=== PATIENT | female | born 2000 | race Two or more races ===

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

== ENCOUNTER 2023-03-20 21:15 | Emergency (ER) | payer MEDICAID ==
[~2023-03-20] VITALS: Ht 160 cm; Wt 50.6 kg
[2023-03-20 22:28] LABS: Basophils # (auto) 0 10 ^3/uL (0-0.2); Basophils % (auto) 0.3 % (0.0-2.0); Eosinophils # (auto) 0.1 10 ^3/uL (0-0.8); Eosinophils % (auto) 0.8 % (0.0-7.0); Hematocrit 40.3 % (36.0-46.0); Hemoglobin 13.6 g/dL (12.2-16.2); Lymphocytes # (auto) 2.5 10 ^3/uL (0.4-5.4); Lymphocytes % (auto) 15.5 % (10.0-50.0); Mean Corpuscular Hemoglobin 30.9 pg (28.0-32.0); Mean Corpuscular Hgb Conc. 33.8 g/dL (32.0-36.0); Mean Corpuscular Volume 91.4 fL (80.0-100.0); Monocytes # (auto) 0.9 10 ^3/uL (0-1.3); Monocytes % (auto) 5.2 % (0.0-12.0); Neutrophils # (auto) 12.8 10 ^3/uL (1.6-8.6); Neutrophils % (auto) 78.2 % (37.0-80.0); Red Blood Cells 4.41 10^6/uL (4.0-5.20); Red Cell Distribution Width 12.9 % (11.8-14.3); White Blood Cell 16.4 10^3/uL (4.4-10.8)
[2023-03-20 22:28] LABS: Urine Bacteria NONE SEEN /hpf (None Seen); Urine Blood Negative /uL (Negative); Urine Clarity Clear (Clear); Urine Color Colorless (Yellow); Urine Mucus FEW (None Seen); Urine Protein, UAD Negative (Negative); Urine Specific Gravity 1.011 (1.001-1.035); Urine Urobilinogen Normal (Negative); Urine WBC <1 /hpf (0 - 5); Urine pH 6.5 (5.0-8.0)
[2023-03-20 22:50] LABS: Alanine Aminotransferase 16 U/L (7-40); Albumin 4.4 g/dL (3.2-4.8); Alkaline Phosphatase 42 U/L (46-116); Anion Gap 8 (5-15); Aspartate Aminotransferase 13 U/L (13-40); Bilirubin, Total 0.4 mg/dL (0.2-1.0); Calcium 9.5 mg/dL (8.5-10.1); Carbon Dioxide 26 mmol/L (20-30); Chloride 103 mmol/L (98-107); Glucose 103 mg/dL (74-106); Potassium 3.7 mmol/L (3.5-5.1); Sodium 137 mmol/L (136-145); Total Protein 7.4 g/dL (5.7-8.2)
[2023-03-20 22:58] LABS: BUN/Creatinine Ratio 11.1 (10.0-20.0); Blood Urea Nitrogen < 5 mg/dL (9-23)
[2023-03-21 03:00] VITALS: BP 127/76; PULSE 85; RESP 14; TEMP 98.6; O2SAT 98
== END 2023-03-21 04:23 | disposition left against medical advice (07) ==
LOC: ER 21:15
DX: O26.891 Other specified pregnancy related conditions, first trimester (principal); R10.2 Pelvic and perineal pain; Z3A.13 13 weeks gestation of pregnancy
CPT/HCPCS: 36415; 76801; 80053; 81001; 81025; 84702; 85025

== ENCOUNTER 2024-05-29 21:47 | Emergency (ER) | payer MEDICAID ==
[~2024-05-29] VITALS: Ht 160 cm; Wt 58.1 kg
[2024-05-29 21:54] VITALS: BP 123/74; RESP 18
[2024-05-29] MEDS ORDERED: ALBUAER3 IN (23:04)
--- NOTE | 2024-05-29 23:04 | ED.PDOC ---
SOB-HPI HPI Comments 24-YEAR-OLD FEMALE PRESENTS TO ER WITH COMPLAINTS OF SHORTNESS OF BREATH X3 DAYS. PATIENT PAST MEDICAL HISTORY SIGNIFICANT FOR ASTHMA REPORTS THAT SHE HAS BEEN EXPERIENCING INTERMITTENT EPISODES OF SHORTNESS OF BREATH X3 DAYS. DENIES ANY PAIN AND NOTES SHE CURRENTLY IS NOT EXPERIENCING ANY SHORTNESS OF BREATH. PATIENT PRESENTS TO ER AMBULATORY ON ARRIVAL, WITH STEADY GAIT, IN NO DISTRESS, WITH VITALS STABLE. DENIES FEVER, BODY ACHES, CHILLS, CHEST PAIN, PALPITATIONS, SORE THROAT, NAUSEA/VOMITING, NUMBNESS/TINGLING OR ANY FURTHER SYMPTOMS/COMPLAINTS Chief Complaint: Shortness of Breath Time Seen by MD: 21:52 Primary Care Provider: UNKNOWN Reviewed notes: Nurses Notes, Medications, Allergies Information Source: Patient Mode of Arrival: Ambulatory Past Medical History PAST MEDICAL HISTORY: Asthma Surgical History: Denies all surgeries Family History Family History: Unknown Social History Smoker: Non-Smoker Alcohol: Denies ETOH Use Drugs: Denies Drug Use Lives In: Home Constitutional: denies: chills, diaphoresis, fatigue, fever, malaise, sweats, weakness, others EENTM: denies: blurred vision, double vision, ear bleeding, ear discharge, ear drainage, ear pain, ear ringing, eye pain, eye redness, hearing loss, mouth pain, mouth swelling, nasal discharge, nose bleeding, nose congestion, nose pain, photophobia, tearing, throat pain, throat swelling, voice changes, others Respiratory: reports: others ( STATED IN HPI) Cardiovascular: denies: chest pain, dizzy spells, diaphoresis, Dyspnea on exertion, edema, irregular heart beat, left arm pain, lightheadedness, palpitations, PND, syncope, others Gastrointestinal: denies: abdomen distended, abdominal pain, blood streaked bowels, constipated, diarrhea, dysphagia, difficulty swallowing, hematemesis, melena, nausea, poor appetite, poor fluid intake, rectal bleeding, rectal pain, vomiting, others Genitourinary: denies: abnormal vagina bleeding, burning, dyspareunia, dysuria, flank pain, frequency, hematuria, incontinence, pain, , vagina discharge, urgency, others Neurological: denies: dizziness, fainting, headache, left sided numbness, left sided weakness, numbness, paresthesia, pre-existing deficit, right sided numbness, right sided weakness, seizure, speech problems, tingling, tremors, weakness, others Musculoskeletal: denies: back pain, gout, joint pain, joint swelling, muscle pain, muscle stiffness, neck pain, others Integumetry: denies: bruises, change in color, change in hair/nails, dryness, laceration, lesions, lumps, rash, wounds, others Allergic/Immunocompromised: denies: Difficulty Healing, Frequent Infections, Hives, Itching, others Hematologic/Lymphatic: denies: anemia, blood clots, easy bleeding, easy bruising, swollen glands, others Endocrine: denies: excessive hunger, excessive sweating, excessive thirst, excessive urination, flushing, intolerance to cold, intolerance to heat, unexplained weight gain, unexplained weight loss, others Psychiatric: denies: anxiety, bipolar disorder, depression, hopeless, panic dis order, schizophrenia, sleepless, suicidal, others Physical Exam General Appearance: No Apparent Distress HEENT: Normal ENT Inspection, PERRL/EOMI, Pharynx Normal, TMs Normal Neck: Full Range of Motion, Non-Tender, Normal Respiratory: Chest Non-Tender, Lungs Clear, No Accessory Muscle Use, No Respiratory Distress, Normal Breath Sounds Cardiovascular: No Murmur, No Gallop, Regular Rate/Rhythm Breast Exam: Deferred Gastrointestinal: NOT DONE Genitalia: Deferred Pelvic: Deferred Rectal: Deferred Extremities: Normal capillary refill, Normal range of motion Neurologic: Alert, bark peeler II-XII nml as Tested, No Motor Deficits, Normal Affect, Normal Mood, No Sensory Deficits Cerebellar Function: Normal Reflexes: Normal Skin: Dry, Normal Color, Warm Peripheral Pulses: 2+ Radial (R), 2+ Radial (L), 2+ Brachial (R), 2+ Brachial (L) Lymphatic: No Adenopathy EKG EKG : Pulse Rate (adult): 96 Cardiac Rhythm: NSR (SR) Block: None Hypertrophy: None ST: Normal Was a procedure done? Was a procedure done?: No Sedation Sedation?: No Differential Dx Differential Diagnosis: Pneumonia, Pulmonary Embolism, Respiratory Distress, Other (COVID-19, INFLUENZA) X-Ray, Labs, Meds, VS Vital Signs Date Time Temp Pulse Resp B/P (MAP) Pulse Ox O2 Delivery O2 Flow Rate FiO2 05/29/24 23:06 97 Room Air* 0 21 05/29/24 21:56 96 05/29/24 21:54 98.0 93 18 123/74 (90) 97 Lab Test 05/29/24 22:56 Range/Units Influenza Type A Antigen Negative Negative Influenza Type B Antigen Negative Negative SARS-CoV-2 Antigen (Rapid) Negative NEGATIVE SWAB RESULTS REVIEWED-NEGATIVE EKG REVIEWED PATIENT ASYMPTOMATIC PRIOR TO DISCHARGE ADVISED TO DRINK PLENTY OF FLUIDS ADVISED TO FOLLOW UP WITH PCP IN 1-2 DAYS PATIENT VERBALIZED UNDERSTANDING AND AGREEABLE WITH CURRENT PLAN OF CARE ADVISED TO RETURN TO ER IMMEDIATELY IF SYMPTOMS WORSEN Time of 1ST Reevaluation: 22:40 Reevaluation 1ST: N/A Patient Education/Counseling: Diagnosis, Treatment, Prognosis, Need For Follow Up Family Education/Counseling: No Family Present Departure 1 Departure Time of Disposition: 23:02 Impression: Primary Impression: Bronchospasm Disposition: 01 HOME / SELF CARE / HOMELESS Condition: Stable e-Prescriptions Albuterol Sulfate (VENTOLIN MDI) 90 Mcg Ih 2 PUFF IN Q4HPRN, #1 INH 0 Refills Prov: DEYSI ELLER 05/29/24 Discharged With: Self Critical Care Note Critical Care Time?: No Stability Stability form required: No Heart Score Heart Score: Heart Score Response (Comments) Value History N/A 0 EKG N/A 0 Age N/A 0 Risk Factors N/A 0 Troponin N/A 0 Total 0 DEYSI ELLER May 29, 2024 23:04
[2024-05-29 23:06] VITALS: O2SAT 97
[2024-05-29 23:24] LABS: Rapid Influenza A Negative (Negative); Rapid Influenza B Negative (Negative)
[2024-05-29 23:27] LABS: COVID19 ANTIGEN SOFIA FIA NEGATIVE (NEGATIVE)
[2024-05-29 23:47] VITALS: PULSE 96
--- NOTE | 2024-06-01 07:13 | ECG ---
[facility] Test Date: 2024-05-29 Test Time: 21:56:54 Pat Name: YARI PEREYRA Department: ED Room: Gender: F Religious Leader: : 2000 Requested By: DEYSI ELLER Order Number: [id number] Reading MD: Bishop Rainey Measurements Intervals [place] Rate: 96 P: 70 [place]: 163 QRS: 91 QRSD: 89 T: 60 QT: 352 QTc: 445 Interpretive Statements Sinus rhythm Borderline right axis deviation Electronically Signed On 06-01-2024 9:46:03 PST by Bishop Rainey Please click the below link to view image of tracing.
== END 2024-05-29 23:48 | disposition home or self-care (01) ==
LOC: ER 21:47
DX: J98.01 Acute bronchospasm (principal); Z20.822 Contact with and (suspected) exposure to COVID-19
CPT/HCPCS: 36415; 87426; 87804; 93005